=== PATIENT | female | born 1935 | race Caucasian/White ===

== ENCOUNTER 2019-01-09 16:53 | Observation (INO) | payer MEDICARE, BC ==
[2019-01-09 17:13] LABS: ADD MAN DIFF? NO
[2019-01-09 17:14] LABS: BASOPHIL # 0.1 10^3/ul (0.0-0.1); BASOPHILS % 0.7 % (0.0-2.0); EOSINOPHILS # 0.1 10^3/ul (0.0-0.5); EOSINOPHILS % 0.7 % (0.0-7.0); HEMOGLOBIN 13.2 g/dl (12.0-16.0); LYMPHOCYTES # 2.2 10^3/ul (0.8-2.9); LYMPHOCYTES % 30.8 % (15.0-51.0); MEAN CORPUSCULAR HEMOGLOBIN 30.7 pg (29.0-33.0); MEAN CORPUSCULAR HGB CONC 32.2 g/dl (32.0-37.0); MEAN CORPUSCULAR VOLUME 95.3 fl (82.0-101.0); MEAN PLATELET VOLUME 9.3 fl (7.4-10.4); MONOCYTE # 0.7 10^3/ul (0.3-0.9); MONOCYTES % 10.1 % (0.0-11.0); NEUTROPHILS % 57.4 % (39.0-77.0); PLATELET COUNT 164 10^3/UL (140-415); RED CELL DISTRIBUTION WIDTH 13.2 % (11.5-14.5)
[2019-01-09 17:25] LABS: HEMOGLOBIN A1C 5.3 % (0-5.9)
[2019-01-09 17:33] LABS: INR 0.97
[2019-01-09 17:34] LABS: PARTIAL THROMBOPLASTIN TIME 33.2 Sec (23.0-35.0)
[2019-01-09 17:35] LABS: ANION GAP 12 (5-13); BLOOD UREA NITROGEN 14 mg/dl (7-20); CALCIUM 9.7 mg/dl (8.4-10.2); CARBON DIOXIDE 26 mmol/L (21-31); CHLORIDE 105 mmol/L (97-110); CHOLESTEROL 192 mg/dl (100-200); CREATINE KINASE 43 IU/L (23-200); GLUCOSE 132 mg/dl (70-220); HDL CHOLESTEROL 47 mg/dl (33-92); LDL CHOLESTEROL,CALCULATED 94 mg/dl; POTASSIUM 3.3 mmol/L (3.5-5.1); SODIUM 143 mmol/L (135-144); TRIGLYCERIDES 253 mg/dl (0-149)
[2019-01-09 17:36] LABS: ETHANOL < 10.0 mg/dl (0-0)
[2019-01-09 17:47] LABS: CK INDEX 1.3; CK-MB 0.58 ng/ml (0.0-2.4); TROPONIN-I < 0.012 ng/ml (0.000-0.120)
[2019-01-09] MEDS: ASPIRIN 325 MG TAB PO (17:47)
[2019-01-09] MEDS: CLOPIDOGREL 75 MG TAB PO (17:50)
[2019-01-09] MEDS ORDERED: ACETAMINOPHEN 325 MG TAB PO (18:00)
[2019-01-09] MEDS ORDERED: DIPHENOXYLATE/ATROPINE TAB PO (18:00)
[2019-01-09] MEDS ORDERED: hydrALAzine 20 MG INJ IV (18:00)
[2019-01-09] MEDS: POTASSIUM CHLORIDE (SR) 20 MEQ TAB PO (18:16)
[2019-01-09] MEDS: PANTOPRAZOLE 40 MG INJ IV (19:46)
[2019-01-09 20:49] LABS: ADD UMIC YES; UR ASCORBIC ACID NEGATIVE (NEGATIVE); UR BILIRUBIN (Dip) NEGATIVE (NEGATIVE); UR BLOOD (Dip) 1+ mg/dL (NEGATIVE); UR CLARITY CLEAR (CLEAR); UR COLOR STRAW (YELLOW); UR GLUCOSE (Dip) NEGATIVE (NEGATIVE); UR KETONES (Dip) NEGATIVE (NEGATIVE); UR LEUKOCYTE ESTERASE (Dip) 1+ Leu/ul (NEGATIVE); UR NITRITE (Dip) NEGATIVE (NEGATIVE); UR RBC 2 /HPF (0-5); UR SPECIFIC GRAVITY (Dip) 1.005 (1.003-1.030); UR TOTAL PROTEIN (Dip) NEGATIVE (NEGATIVE); UR UROBILINOGEN (Dip) NEGATIVE (NEGATIVE); UR WBC 10 /HPF (0-5)
[2019-01-09] MEDS: BUSPIRONE 5 MG TAB PO (21:00)
[2019-01-09 21:07] LABS: AMPHETAMINE/METHAMPHETAMINE Negative (NEGATIVE); BARBITURATES Negative (NEGATIVE); CANNABINOIDS Negative (NEGATIVE); COCAINE Negative (NEGATIVE)
[2019-01-09] MEDS: ALPRAZOLAM 1 MG TAB PO (21:08)
[2019-01-09 21:12] LABS: BENZODIAZEPINES Positive (NEGATIVE); OPIATES Positive (NEGATIVE)
[2019-01-09] MEDS: ALPRAZOLAM 0.25 MG TAB PO (21:30)
[2019-01-09] MEDS: ATORVASTATIN 80 MG TAB PO (23:37)
[2019-01-09] MEDS: HYDROCODONE/APAP (10/325) TAB PO (23:38)
[2019-01-10 06:01] LABS: ADD MAN DIFF? NO
[2019-01-10 06:13] LABS: WHITE BLOOD COUNT 5.6 10^3/ul (4.8-10.8)
[2019-01-10 06:13] LABS: BASOPHILS % 0.4 % (0.0-2.0); EOSINOPHILS # 0.1 10^3/ul (0.0-0.5); EOSINOPHILS % 1.1 % (0.0-7.0); HEMATOCRIT 37.5 % (37.0-47.0); HEMOGLOBIN 11.8 g/dl (12.0-16.0); LYMPHOCYTES # 1.9 10^3/ul (0.8-2.9); LYMPHOCYTES % 34.1 % (15.0-51.0); MEAN CORPUSCULAR HEMOGLOBIN 30.2 pg (29.0-33.0); MEAN CORPUSCULAR HGB CONC 31.5 g/dl (32.0-37.0); MEAN CORPUSCULAR VOLUME 95.9 fl (82.0-101.0); MEAN PLATELET VOLUME 9.4 fl (7.4-10.4); MONOCYTE # 0.7 10^3/ul (0.3-0.9); MONOCYTES % 12.3 % (0.0-11.0); NEUTROPHIL # 2.9 10^3/ul (1.6-7.5); NEUTROPHILS % 51.9 % (39.0-77.0); PLATELET COUNT 127 10^3/UL (140-415); RED BLOOD COUNT 3.91 10^6/ul (4.20-5.40); RED CELL DISTRIBUTION WIDTH 13.2 % (11.5-14.5)
[2019-01-10 06:41] LABS: ALANINE AMINOTRANSFERASE 13 IU/L (13-69); ALBUMIN 3.7 g/dl (3.3-4.9); ALBUMIN/GLOBULIN RATIO 1.12; ALKALINE PHOSPHATASE 70 IU/L (42-121); ANION GAP 9 (5-13); ASPARTATE AMINO TRANSFERASE 23 IU/L (15-46); BILIRUBIN,INDIRECT 0.5 mg/dl (0-1.1); BILIRUBIN,TOTAL 0.5 mg/dl (0.2-1.3); BLOOD UREA NITROGEN 14 mg/dl (7-20); CALCIUM 9.4 mg/dl (8.4-10.2); CARBON DIOXIDE 27 mmol/L (21-31); CHLORIDE 107 mmol/L (97-110); CREATININE 0.94 mg/dl (0.44-1.00); GLUCOSE 107 mg/dl (70-220); POTASSIUM 3.5 mmol/L (3.5-5.1); SODIUM 143 mmol/L (135-144)
[2019-01-10] MEDS: BUSPIRONE 5 MG TAB PO ×2 (09:00→09:05)
[2019-01-10] MEDS: ESCITALOPRAM 10 MG TAB PO (09:05)
[2019-01-10] MEDS: PANTOPRAZOLE (EC) 40 MG TAB PO (09:05)
[2019-01-10] MEDS: ASPIRIN 81 MG TAB PO (09:05)
[2019-01-10] MEDS: CLOPIDOGREL 75 MG TAB PO (09:05)
[2019-01-10] MEDS: LOSARTAN 50 MG TAB PO (09:06)
[2019-01-10] MEDS: HYDROCODONE/APAP (10/325) TAB PO ×2 (10:51→16:23)
[2019-01-10] MEDS: ALPRAZOLAM 1 MG TAB PO (16:23)
== END 2019-01-10 19:50 | disposition home or self-care (01) ==
LOC: E/R 16:53 → 6WM 17:53
DX: G45.9 Transient cerebral ischemic attack, unspecified (principal); R47.01 Aphasia; R53.1 Weakness; I70.0 Atherosclerosis of aorta; I10 Essential (primary) hypertension; M79.7 Fibromyalgia; F41.9 Anxiety disorder, unspecified; F32.9 Major depressive disorder, single episode, unspecified; Z79.82 Long term (current) use of aspirin
CPT/HCPCS: 36415; 70450; 70544; 70549; 70551; 71045; 80048; 80053; 80061; 80307; 81001; 82550; 82553; 82962; 83036; 84443; 84484; 85025; 85610; 85730; 92610; 93005; 93306; 99217; 99285-25